=== PATIENT | female | born 2000 | race Caucasian/White ===

== ENCOUNTER 2023-03-08 09:02 | Emergency (ER) | payer BC ==
[~2023-03-08] VITALS: Ht 157.5 cm; Wt 77.6 kg
[2023-03-08 09:45] VITALS: BP 103/73
--- NOTE | 2023-03-08 10:13 | NUR ---
pt amb to bed 11
--- NOTE | 2023-03-08 10:19 | NUR ---
22 YEAR SOLD FEMALE ALERT, ORIENTED X4 PRESENTS TO ER WITH VAGINAL DISCHARGE, PAIN BURNING WITH URINATION.
--- NOTE | 2023-03-08 10:44 | NUR ---
ASSIST MD WITH PELVIC EXAM SPECIMEN COLLECTED SENT.
[2023-03-08 11:28] LABS: APPEARANCE,URINE CLEAR (CLEAR); BILIRUBIN,URINE NEGATIVE (NEGATIVE); BLOOD, URINE NEGATIVE (NEGATIVE); COLOR,URINE YELLOW (YELLOW); LEUKOCYTE ESTERASE ,URINE TRACE (NEGATIVE); NITRITE, URINE NEGATIVE (NEGATIVE); PH,URINE 7.5 (5.0-9.0); UGLUCOSE NEGATIVE (NEGATIVE)
[2023-03-08 11:50] LABS: RBC,URINE 0-5 /HPF (0-5); WBC,URINE 0-5 /HPF (0-5)
[2023-03-08 11:51] LABS: TRICHOMONAS,URINE None Seen /HPF (None Seen); YEAST,URINE None Seen /HPF (None Seen)
[2023-03-08] MEDS ORDERED: FLUCONAZOLE 100 MG TAB PO ONE (13:05)
[2023-03-08 13:35] VITALS: BP 122/70
--- NOTE | 2023-03-08 13:36 | NUR ---
PATIENT CONDITION STABLE D/C HOME WITH I NSTRUCTIONS AFTER CARE REVIEWED UNDERSTOOD LEFT ER AMBULATORY WITH STEADY GAIT.
== END 2023-03-08 13:35 | disposition home or self-care (01) ==
LOC: MED 09:02
DX: N76.0 Acute vaginitis (principal); N93.9 Abnormal uterine and vaginal bleeding, unspecified; Z79.899 Other long term (current) drug therapy
CPT/HCPCS: 81001; 81025; 87210; 87491; 99284